=== PATIENT | female | born 1970 | race Two or more races ===

== ENCOUNTER → 2025-08-25 | Outpatient (CLI) | payer MEDICAID, SELFPAY ==
--- NOTE | 2025-08-25 14:00 | XR_ITS ---
EXAMINATION: Thyroid sonography complete TECHNIQUE: Grayscale sonographic images thyroid lobes Date and time: August 25, 2025, 1401 hours INDICATIONS: Diagnosis thyrotoxicosis, throat tightness beginning 2 weeks ago. FINDINGS: Right thyroid 4.6 cm no solid nodules Left thyroid 4.1 cm no solid nodules IMPRESSION: Negative for thyromegaly Negative for thyroid nodules
== END | disposition home or self-care (01) ==
LOC: CDIM 13:41
PROVIDERS: Referring Provider Student in an Organized Health Care Education/Training Program; Visit Provider Student in an Organized Health Care Education/Training Program
DX: E05.80 Other thyrotoxicosis without thyrotoxic crisis or storm (principal)
CPT/HCPCS: 76536

== ENCOUNTER → 2025-09-07 | Outpatient (CLI) | payer MEDICAID, SELFPAY ==
--- NOTE | 2025-09-07 10:12 | XR_ITS ---
EXAMINATION: PA chest single view TECHNIQUE: Upright PA chest single view Date and time: September 07, 2025, 1048 hours INDICATIONS: Coughing beginning 2 weeks ago. FINDINGS: Minor subsegmental atelectasis left base Normal heart size No lobar pneumonia Prominent osteopenia IMPRESSION: No lobar pneumonia
== END | disposition home or self-care (01) ==
LOC: CDIM 10:03
PROVIDERS: PCP Nurse Practitioner Family; Referring Provider Nurse Practitioner Family; Visit Provider Nurse Practitioner Family
DX: R05.9 Cough, unspecified (principal)
CPT/HCPCS: 71045